=== PATIENT | female | born 1990 | race Caucasian/White ===

== ENCOUNTER 2016-07-28 17:42 | Emergency (ER) | payer BC ==
[~2016-07-28] VITALS: Ht 162.6 cm; Wt 63.0 kg
[2016-07-28 20:11] VITALS: BP 120/74
== END 2016-07-28 20:16 | disposition home or self-care (01) ==
LOC: ER 17:42
DX: O20.0 Threatened abortion (principal); Z3A.01 Less than 8 weeks gestation of pregnancy

== ENCOUNTER 2018-10-01 21:10 | Emergency (ER) | payer BC ==
[~2018-10-01] VITALS: Ht 162.6 cm; Wt 65.8 kg
[2018-10-01 21:56] LABS: ABSOLUTE NEUTROPHILS 5.7 thou/uL (1.4-8.2); BASOPHILS 0.5 % (0.0-2.0); EOSINOPHILS 1.3 % (0.0-3.0); HEMATOCRIT 37.4 % (37.0-47.0); HEMOGLOBIN 12.8 gm/dL (12.0-15.0); LYMPHOCYTES 33.5 % (24.0-44.0); MCH 29.4 pg (26.0-34.0); MCHC 34.3 g/dL (28.0-37.0); MCV 85.7 fL (80.0-100.0); MONOCYTES 5.9 % (1.0-8.0); PLATELET COUNT 184 thou/uL (150-400); POLYS 58.8 % (36.0-66.0); RBC 4.36 mil/uL (4.20-5.00); RDW 13.4 % (10.5-14.5); WBC 9.7 thou/uL (4.0-11.0)
[2018-10-01 22:04] LABS: ANION GAP 12 mmol/L (7-16); BUN 8 mg/dL (7-18); CALCIUM 8.8 mg/dL (8.5-10.1); CHLORIDE 104 mmol/L (98-107); CO2 25 mmol/L (21-32); CREATININE 0.7 mg/dL (0.6-1.0); GLUCOSE 110 mg/dL (74-106); POTASSIUM 4.1 mmol/L (3.5-5.1); SODIUM 141 mmol/L (136-145)
[2018-10-01 22:08] LABS: DIRECT BILIRUBIN < 0.1 mg/dL (<0.1-0.3); LIPASE 218 U/L (73-393); SGOT 12 U/L (15-37); SGPT 18 U/L (30-65); TOTAL BILIRUBIN 0.2 mg/dL (<0.1-1.0); TOTAL PROTEIN 7.4 g/dL (6.4-8.2)
[2018-10-02 01:57] VITALS: BP 117/57
== END 2018-10-02 01:58 | disposition short-term general hospital (02) ==
LOC: ER 21:10
PROVIDERS: Emergency Medicine
DX: O00.90 Unspecified ectopic pregnancy without intrauterine pregnancy (principal); O26.891 Other specified pregnancy related conditions, first trimester; R19.7 Diarrhea, unspecified; Z3A.01 Less than 8 weeks gestation of pregnancy

== ENCOUNTER 2018-10-07 14:25 | Emergency (ER) | payer BC, OTHER ==
[~2018-10-07] VITALS: Ht 162.6 cm; Wt 65.8 kg
[2018-10-07 15:07] LABS: ABSOLUTE NEUTROPHILS 2.8 thou/uL (1.4-8.2); BASOPHILS 0.5 % (0.0-2.0); EOSINOPHILS 1.2 % (0.0-3.0); LYMPHOCYTES 34.7 % (24.0-44.0); MCH 29.2 pg (26.0-34.0); MCHC 33.4 g/dL (28.0-37.0); MCV 87.4 fL (80.0-100.0); MONOCYTES 5.8 % (1.0-8.0); PLATELET COUNT 134 thou/uL (150-400); POLYS 57.8 % (36.0-66.0); RBC 2.13 mil/uL (4.20-5.00); RDW 13.6 % (10.5-14.5); WBC 4.9 thou/uL (4.0-11.0)
[2018-10-07 15:09] LABS: HEMATOCRIT 18.7 % (37.0-47.0); HEMOGLOBIN 6.2 gm/dL (12.0-15.0)
[2018-10-07 15:15] LABS: ANION GAP 11 mmol/L (7-16); BUN 9 mg/dL (7-18); CALCIUM 9.2 mg/dL (8.5-10.1); CHLORIDE 105 mmol/L (98-107); CO2 25 mmol/L (21-32); CREATININE 0.7 mg/dL (0.6-1.0); GLUCOSE 93 mg/dL (74-106); POTASSIUM 3.8 mmol/L (3.5-5.1); SODIUM 141 mmol/L (136-145)
[2018-10-07 15:23] LABS: TROPONIN-I <0.06 ng/mL (<0.06)
[2018-10-07 15:33] LABS: ABSOLUTE NEUTROPHILS 4.2 thou/uL (1.4-8.2); BASOPHILS 1.1 % (0.0-2.0); EOSINOPHILS 1.3 % (0.0-3.0); HEMATOCRIT 26.3 % (37.0-47.0); LYMPHOCYTES 33.4 % (24.0-44.0); MCH 29.1 pg (26.0-34.0); MCHC 34.1 g/dL (28.0-37.0); MCV 85.5 fL (80.0-100.0); MONOCYTES 6.1 % (1.0-8.0); PLATELET COUNT 178 thou/uL (150-400); POLYS 58.1 % (36.0-66.0); RBC 3.07 mil/uL (4.20-5.00); RDW 13.5 % (10.5-14.5); WBC 7.3 thou/uL (4.0-11.0)
[2018-10-07 15:41] LABS: HEMOGLOBIN 8.9 gm/dL (12.0-15.0)
[2018-10-07 16:21] VITALS: BP 103/50
--- NOTE | 2018-10-07 16:55 | EKG ---
[place] [address] [facility] [employer] [place] [address] ELECTROCARDIOGRAM REPORT Name: MAURIZIO ROACH Room #: [facility]#: [id number] ������������������ Admission: 10/07/18 ������������������ Attend Phys: Discharge: 10/07/18 ������������������ Date of : 86 Report #: [id number] ����������������������������������������������������������������� [id number] THIS REPORT FOR: //name// [facility] ED Test Date: 2018-10-07 Test Time: 14:32:42 Pat Name: MAURIZIO ROACH Department: Room: Gender: F [employer]: [id number] : 1990 Requested By: Horacio Faulkner Order Number: [id number] MD: Anderson Pavon Measurements Intervals [place] Rate: 72 P: 55 MN: 149 QRS: 5 QRSD: 99 T: 0 QT: 398 QTc: 436 Interpretive Statements Sinus rhythm Borderline T abnormalities No previous ECG available for comparison Electronically Signed On 10-07-2018 16:55:44 CDT by Anderson Pavon [email or web address] ��������������������������������������������� <ELECTRONICALLY SIGNED> ���������������������������������������� By: Anderson Pavon MD, [facility] ��������������������������������������������� 10/07/18 1655 1432 1432 Anderson Pavon MD, FACC /EPI
== END 2018-10-07 16:36 | disposition home or self-care (01) ==
LOC: ER 14:25
PROVIDERS: Emergency Medicine
DX: R07.89 Other chest pain (principal)